=== PATIENT | male | born 1930 | race Caucasian/White ===

== ENCOUNTER 2016-10-02 18:36 | Observation (INO) | payer BC, MEDICARE ==
[~2016-10-02] VITALS: Ht 162.6 cm; Wt 76.9 kg
[~2016-10-02 18:36] MED LIST: ASPI-496 PO; FINA5TAB4 PO; ISOS30TA PO; LISI-167 PO; LISI-170 PO; LISI30TA4 PO; METO25TA91 PO; MULT-82 PO; OMEP40CA6 PO; ROSU5TAB PO
[2016-10-02] MEDS ORDERED: ASPIRIN 81 MG TABLET CHEW PO ONE (19:00)
[2016-10-02] MEDS ORDERED: SODIUM CHLORIDE FLUSH 10ML SYR IVF ONE (19:00)
[2016-10-02 19:21] LABS: ASPARTATE AMINO TRANSFERASE 20 U/L (15-37); BLOOD UREA NITROGEN 27 mg/dL (7-18)
[2016-10-02 19:27] LABS: IS PT STATUS REG ER OR PRE ER? YES
[2016-10-02] MEDS ORDERED: ASPIRIN 81 MG TABLET CHEW ONE (19:29)
[2016-10-02] MEDS ORDERED: BISACODYL 10 MG SUPP PR PRN (20:30)
[2016-10-02] MEDS ORDERED: ONDANSETRON ODT 4 MG PO PRN (20:30)
[2016-10-02] MEDS ORDERED: LABETALOL 5MG/ML, 20ML IVPush PRN (20:30)
[2016-10-02] MEDS ORDERED: POLYETHYLENE GLYCOL 17 GM PACKET PO PRN (20:30)
[2016-10-02] MEDS ORDERED: DOCUSATE 100 MG CAPSULE PO PRN (20:30)
[2016-10-02] MEDS ORDERED: TRAZODONE 50MG TABLET PO PRN (20:30)
[2016-10-02] MEDS ORDERED: ACETAMINOPHEN 325 MG TABLET PO PRN (20:30)
[2016-10-02 20:40] VITALS: BP 130/82
[2016-10-02] MEDS ORDERED: FINASTERIDE 5 MG TABLET PO SCH (21:00)
[2016-10-02] MEDS ORDERED: ENOXAPARIN 40 MG/0.4 ML SQ SCH (21:00)
[2016-10-02] MEDS ORDERED: ATORVASTATIN 80 MG TABLET PO SCH (21:00)
[2016-10-02] MEDS: SODIUM CHLORIDE 0.9% 1,000 ML IV SCH (22:40)
[2016-10-02 23:57] LABS: IS PT STATUS REG ER OR PRE ER? NO
[2016-10-03 01:45] VITALS: BP 116/71
[2016-10-03 06:07] LABS: ASPARTATE AMINO TRANSFERASE 13 U/L (15-37); BLOOD UREA NITROGEN 25 mg/dL (7-18)
[2016-10-03 06:17] LABS: IS PT STATUS REG ER OR PRE ER? NO
[2016-10-03 06:33] VITALS: BP 118/63
[2016-10-03] MEDS ORDERED: OMEPRAZOLE 20 MG CAPSULE.DR PO SCH (07:30)
[2016-10-03] MEDS ORDERED: ISOSORBIDE MONONITRATE ER 30 MG TABLET PO SCH (09:00)
[2016-10-03] MEDS ORDERED: ASPIRIN 81 MG TABLET EC PO SCH (09:00)
[2016-10-03] MEDS ORDERED: LISINOPRIL 10 MG TABLET PO SCH (09:00)
[2016-10-03] MEDS ORDERED: MULTIVITAMIN 1 TABLET PO SCH (09:00)
[2016-10-03] MEDS: SODIUM CHLORIDE 0.9% 1,000 ML IV SCH (10:45)
== END 2016-10-03 13:42 | disposition home or self-care (01) ==
LOC: ED 19:40 → INTOOBSV 19:44 → EDIP 19:44 → ED 20:02 → 5SO 20:30
PROVIDERS: ADMIT Internal Medicine; ATTEND Internal Medicine
DX: R07.2 Precordial pain (principal); I25.2 Old myocardial infarction; I25.10 Atherosclerotic heart disease of native coronary artery without angina pectoris; N40.0 Benign prostatic hyperplasia without lower urinary tract symptoms; I10 Essential (primary) hypertension; E78.5 Hyperlipidemia, unspecified; H91.90 Unspecified hearing loss, unspecified ear; Z85.46 Personal history of malignant neoplasm of prostate; Z95.1 Presence of aortocoronary bypass graft; Z90.49 Acquired absence of other specified parts of digestive tract
CPT/HCPCS: 36415; 71010; 80053; 83735; 84439; 84443; 84484; 85025; 93005; 96360; 96361; 96372; 99285; G0378; J1650; J7030

== ENCOUNTER → 2017-01-17 | Outpatient (CLI) | payer BC, MEDICARE ==
[~2017-01-17] MED LIST changes: +LISI5TAB7 PO; +MULT-224 PO; -MULT-82 PO; +REGADENOSON 0.4 MG/5 ML SYRINGE ONE
== END | disposition home or self-care (01) ==
LOC: CFH 11:49
PROVIDERS: ATTEND Internal Medicine Cardiovascular Disease
DX: R07.9 Chest pain, unspecified (principal); Z95.1 Presence of aortocoronary bypass graft
CPT/HCPCS: 78452; 93017; A9502; J2785

== ENCOUNTER 2017-05-27 10:33 | Emergency (ER) | payer BC, MEDICARE ==
[~2017-05-27] VITALS: Ht 160 cm; Wt 75.0 kg
[~2017-05-27 10:33] MED LIST changes: -REGADENOSON 0.4 MG/5 ML SYRINGE ONE
[2017-05-27] MEDS ORDERED: FENTANYL PF 100 MCG/2ML ONE (10:57)
[2017-05-27] MEDS ORDERED: FENTANYL PF 100 MCG/2ML IVPush ONE (11:00)
[2017-05-27] MEDS ORDERED: METO25TA35 PO (11:04)
[2017-05-27] MEDS ORDERED: ISOS30TA8 PO (11:04)
[2017-05-27] MEDS ORDERED: ACETAMINOPHEN 325 MG TABLET ONE (12:21)
[2017-05-27 12:27] VITALS: BP 147/61
[2017-05-27] MEDS ORDERED: ACETAMINOPHEN 325 MG TABLET PO ONE (12:30)
[2017-05-27] MEDS ORDERED: ONDANSETRON ODT 4 MG ONE (12:38)
[2017-05-27] MEDS ORDERED: ONDANSETRON ODT 4 MG PO ONE (13:00)
== END 2017-05-27 12:52 | disposition home or self-care (01) ==
LOC: ED 12:41
DX: S42.212A Unspecified displaced fracture of surgical neck of left humerus, initial encounter for closed fracture (principal); E78.5 Hyperlipidemia, unspecified; I25.10 Atherosclerotic heart disease of native coronary artery without angina pectoris; K21.9 Gastro-esophageal reflux disease without esophagitis; I10 Essential (primary) hypertension; W01.0XXA Fall on same level from slipping, tripping and stumbling without subsequent striking against object, initial encounter; Y93.89 Activity, other specified; Y92.098 Other place in other non-institutional residence as the place of occurrence of the external cause; Y99.8 Other external cause status
CPT/HCPCS: 29105; 73030; 96374; 99284; J3010; Q0162

== ENCOUNTER 2017-08-15 15:57 | Emergency (ER) | payer BC, MEDICARE ==
[~2017-08-15] VITALS: Ht 160 cm; Wt 77.2 kg
[~2017-08-15 15:57] MED LIST changes: +ISOS30TA8 PO; +METO25TA35 PO
[2017-08-15] MEDS ORDERED: ACETAMINOPHEN 325 MG TABLET ONE (16:49)
[2017-08-15] MEDS ORDERED: IBUPROFEN 200 MG TABLET ONE (16:49)
[2017-08-15] MEDS ORDERED: IBUPROFEN 200 MG TABLET PO ONE (17:00)
[2017-08-15] MEDS ORDERED: ACETAMINOPHEN 325 MG TABLET PO ONE (17:00)
[2017-08-15 17:53] VITALS: BP 144/77
== END 2017-08-15 18:09 | disposition home or self-care (01) ==
LOC: ED 17:05
DX: S22.42XA Multiple fractures of ribs, left side, initial encounter for closed fracture (principal); E78.5 Hyperlipidemia, unspecified; I11.9 Hypertensive heart disease without heart failure; I25.10 Atherosclerotic heart disease of native coronary artery without angina pectoris; K21.9 Gastro-esophageal reflux disease without esophagitis; N40.0 Benign prostatic hyperplasia without lower urinary tract symptoms; W01.0XXA Fall on same level from slipping, tripping and stumbling without subsequent striking against object, initial encounter; Y93.89 Activity, other specified; Y92.098 Other place in other non-institutional residence as the place of occurrence of the external cause; Y99.8 Other external cause status; Z85.46 Personal history of malignant neoplasm of prostate; Z90.49 Acquired absence of other specified parts of digestive tract; Z95.1 Presence of aortocoronary bypass graft
CPT/HCPCS: 71250; 93005; 99284

== ENCOUNTER 2018-05-30 15:21 | Emergency (ER) | payer BC, MEDICARE ==
[~2018-05-30] VITALS: Ht 160 cm; Wt 79.7 kg
[~2018-05-30 15:21] MED LIST changes: -MULT-224 PO; +MULT-642 PO
--- NOTE | 2018-05-30 15:45 | NUR ---
attemtped to enter room to assesspt, pt in RAD
--- NOTE | 2018-05-30 15:55 | NUR ---
pt bIB family from home c/o SOB and intermittent non-productive cough. 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 pt denies CP. pt is pink warm and dry. speaking full sentences without difficulty. RT at bedside for breathing tx
[2018-05-30] MEDS ORDERED: ALBUTEROL/IPRATROPIUM 2.5MG/0.5MG, 3 ML NPPB ONE (16:00)
[2018-05-30] MEDS ORDERED: ALBUTEROL/IPRATROPIUM 2.5MG/0.5MG, 3 ML ONE (16:01)
--- NOTE | 2018-05-30 16:55 | NUR ---
report to Sher STEWARD for lunch
[2018-05-30] MEDS ORDERED: SODIUM CHLORIDE FLUSH 10ML SYR IVF ONE (17:00)
[2018-05-30] MEDS ORDERED: SODIUM CHLORIDE 0.9% 1,000ML IVBOLUS ONE (17:00)
--- NOTE | 2018-05-30 17:40 | NUR ---
no changes. pt resting in position of comfort with at bedside. doziong intermittently
[2018-05-30 18:57] VITALS: BP 153/68
== END 2018-05-30 19:01 | disposition home or self-care (01) ==
LOC: ED 18:18
DX: J20.8 Acute bronchitis due to other specified organisms (principal); B97.89 Other viral agents as the cause of diseases classified elsewhere; I25.10 Atherosclerotic heart disease of native coronary artery without angina pectoris; I95.9 Hypotension, unspecified; I10 Essential (primary) hypertension; K21.9 Gastro-esophageal reflux disease without esophagitis; E78.5 Hyperlipidemia, unspecified; E78.00 Pure hypercholesterolemia, unspecified; Z90.49 Acquired absence of other specified parts of digestive tract; Z95.1 Presence of aortocoronary bypass graft; Z87.891 Personal history of nicotine dependence
CPT/HCPCS: 71046; 93005; 96360; 99283; J7030

== ENCOUNTER 2018-12-05 15:02 | Observation (INO) | payer OTHER, MEDICARE ==
[~2018-12-05] VITALS: Ht 160 cm; Wt 78.0 kg
[2018-12-07 13:05] VITALS: BP 101/64
== END 2018-12-07 17:00 | disposition home or self-care (01) ==
LOC: ED 16:16 → INTOOBSV 16:27 → EDIP 16:27 → 5SO 17:43 → INTOOBSV 12-07 12:39 → OBSVTOIN 12-07 12:39 → DCLOUNGE 12-07 16:45
PROVIDERS: ADMIT Hospitalist; ATTEND Internal Medicine
DX: R07.89 Other chest pain (principal); E78.49 Other hyperlipidemia; I77.810 Thoracic aortic ectasia; I10 Essential (primary) hypertension; I70.213 Atherosclerosis of native arteries of extremities with intermittent claudication, bilateral legs; I25.10 Atherosclerotic heart disease of native coronary artery without angina pectoris; E78.5 Hyperlipidemia, unspecified; Z79.82 Long term (current) use of aspirin; Z79.899 Other long term (current) drug therapy; Z95.1 Presence of aortocoronary bypass graft
CPT/HCPCS: 36415; 71045; 78452; 80048; 80053; 82040; 84484; 85025; 85610; 93005; 93017; 93306; 93922; 96372; 96374; 96376; 99285; A9502; C9898; G0378; J0360; J1644; J1650; J2785